=== PATIENT | female | born 1995 | race Two or more races ===

== ENCOUNTER 2021-11-21 08:00 | Outpatient (CLI) | payer OTHER ==
[~2021-11-21] VITALS: Ht 165.1 cm; Wt 65.8 kg
[2021-11-21] MEDS ORDERED: TOPROL XL25 M1 PO (12:09)
== END 2021-12-11 08:00 | disposition home or self-care (01) ==
LOC: LAB 08:00 → SURH 11-26 10:11 → EDSTATUS 11-26 15:45 → LAB 12-11 08:00
PROVIDERS: ATTEND Obstetrics & Gynecology
DX: Z11.59 Encounter for screening for other viral diseases (principal); K80.20 Calculus of gallbladder without cholecystitis without obstruction; D68.8 Other specified coagulation defects; I10 Essential (primary) hypertension